=== PATIENT | male | born 1995 | race Caucasian/White ===

== ENCOUNTER 2023-11-05 07:39 | Emergency (ER) | payer BC, SELFPAY ==
[2023-11-05] VITALS (8 sets, daily range): BP systolic 109–143; BP diastolic 54–97; PULSE 75–101; RESP 12–18; TEMP 36.7–37.3; O2SAT 94–98; BMI 35.9
--- NOTE | 2023-11-05 08:16 | CRLHL7_ITS ---
For Patients: As a result of the Century Cures Act, medical imaging exams and procedure reports are released immediately into your electronic medical record. You may view this report before your referring provider. If you have questions, please contact your health care provider. Indication: Pain Technique: Three views of the lumbosacral spine were acquired Comparison: None Findings: Normal bone mineral density. Normal alignment. Height of vertebral bodies is normal. Caliber of the intervertebral disc space is normal. Facet joints appear normal. No spondylolysis or spondylolisthesis. Impression: Normal plain film examination of the lumbosacral spine Dictated by Fitz Ward MD @ 11/05/2023 9:39:31 AM (Electronically Signed)
[2023-11-05] MEDS: HYDROCODONE-ACETAMIN 5-325 MG 1 TAB 2 TAB PO (08:23)
--- NOTE | 2023-11-05 08:33 | ED.GENADULT ---
HPI - General Adult General Chief complaint: Back Injury/Pain Stated complaint: back pain Time Seen by Provider: 11/05/23 07:59 Source: patient Mode of arrival: ambulatory Limitations: no limitations History of Present Illness HPI narrative: 28-year-old male coming in today complaining of back pain. Patient states he has had a bad back for many years. States that approximately 5 years ago he had an MRI which showed that he had ?four bad discs?. He states that he was supposed to do physical therapy but he did not finish the physical therapy as prescribed because he could not miss any more work. He states that every 2 months he has flare ups of his back pain. He generally rests , takes NSAIDs and within a few days it passes. He states that this might be the worst flare up that he has had. He complains of pain with any position except for lying down. Pain is located in the low back bilaterally, radiates down the left leg. He states that the left leg is tingling. He states that any movement since shooting pain across the low back. He denies any loss of bowel or bladder control. He denies fevers or chills. No nausea or vomiting. I did look the patient up on the [place] pharmacy monitoring website, he has had no narcotic pain medications. He denies any saddle anesthesia. Unfortunately, he was told he could come in today, on a Monday, and have an MRI done of his back. Patient denies any daily medications. States that both of his parents have had back surgeries in the past. Related Data Previous Rx's Medication Instructions Recorded methylprednisolone 4 mg tablets in See Rx Instructions PO .COMPLEX 11/05/23 a dose pack (Medrol (Jamison)) #21 ea methylprednisolone 4 mg tablets in See Rx Instructions PO .COMPLEX 11/05/23 a dose pack (Medrol (Jamison)) #21 ea Review of Systems Status of ROS: Reports: 10 or more systems reviewed and unremarkable except as noted in History and below PFSH PFS Social History Smoking Status: Never smoker How often do you have a drink containing alcohol: monthly or less AUDIT-C Alcohol total score: 1 Non-prescribed substance use: denies use service: No Exam Narrative: Exam Narrative: Overweight, well-developed patient who appears quite uncomfortable. Alert and oriented. Answers questions appropriately. Mood and affect are appropriate. Thoughts are goal oriented and rational. No tangential or magical thinking noted. Patient speaks in full sentences without needing to catch his breath. HEENT: Normocephalic atraumatic. Pupils are equally round reactive to light. Extraocular muscles are intact. Conjunctivae are moist without any icterus noted. Moist mucous membranes. Abdomen: Soft and nontender . Extremities: Bilateral lower extremities are without edema. Normal DP and PT pulses. Skin: Well perfused without any obvious rashes. Back: Normal appearance. He has discomfort to palpation across the lower back. No point tenderness over the thoracic or lower spine. There are no rashes or ecchymosis noted. No swelling. Strength is 5/5 of the upper and lower extremities, however patient lets the lower leg drop secondary to back pain. Reflexes are 2+ and symmetric at the knees. Gait is labored. Patient required assistance to get into the room. Const: Vital Signs, click to edit/add: Vital Signs - 24 hr 11/05/23 07:41 11/05/23 07:48 11/05/23 08:00 Temperature 99.1 F 99.1 F Pulse Rate 90 Pulse Rate [Right Radial] 101 H 98 Respiratory Rate 18 12 Blood Pressure [Le ft Upper Arm] 129/79 121/81 Pulse Oximetry 98 94 Oxygen Delivery Me thod Room Air Room Air Room Air 11/05/23 08:00 11/05/23 08:31 11/05/23 09:02 Temperature Pulse Rate Pulse Rate [Right Radial] 90 82 75 Respiratory Rate 18 18 18 Blood Pressure [Le ft Upper Arm] 143/97 H 114/77 109/56 L Pulse Oximetry 94 97 97 Oxygen Delivery Me thod Room Air Room Air Room Air 11/05/23 09:30 11/05/23 09:39 Temperature 99.0 F 99.1 F Pulse Rate Pulse Rate [Right Radial] 78 75 Respiratory Rate 16 18 Blood Pressure [Le ft Upper Arm] 126/54 L 109/56 L Pulse Oximetry 95 97 Oxygen Delivery Me thod Room Air Room Air Course Course ED Course: We discussed that patient likely does need to have an MRI, however that is not something we were able to do today in the ER. We discussed that doing an x-ray might not give us a lot of information, but patient wished to proceed. Therefore lumbar x-ray was done. This was unremarkable. Patient received hydrocodone while he was here. This did take the edge off of his pain. Vital Signs Vital signs: Initial Vital Signs Temperature 99.1 F 11/05/23 07:41 Temperature Source Temporal Artery Scan 11/05/23 07:41 Pulse Rate 101 H 11/05/23 07:41 Pulse Rhythm Regular 11/05/23 07:41 Pulse Strength 3+ Normal 11/05/23 07:41 Respiratory Rate 18 11/05/23 07:41 Blood Pressure 129/79 11/05/23 07:41 Blood Pressure Mean 95 11/05/23 07:41 Blood Pressure Position Supine 11/05/23 07:41 Pulse Oximetry 98 11/05/23 07:41 Oxygen Delivery Method Room Air 11/05/23 07:41 Vital Signs Temperature 99.1 F 11/05/23 07:41 Pulse Rate 101 H 11/05/23 07:41 Respiratory Rate 18 11/05/23 07:41 Blood Pressure 129/79 11/05/23 07:41 Pulse Oximetry 98 11/05/23 07:41 Oxygen Delivery Method Room Air 11/05/23 07:41 Temperature 99.1 F 11/05/23 09:39 Pulse Rate 75 11/05/23 09:39 Respiratory Rate 18 11/05/23 09:39 Blood Pressure 109/56 L 11/05/23 09:39 Pulse Oximetry 97 11/05/23 09:39 Oxygen Delivery Method Room Air 11/05/23 09:39 Medications Administered Medications: Discontinued Medications Generic Name Dose Route Start Last Admin Trade Name Freq PRN Reason Stop Dose Admin Hydrocodone Bitart/Acetaminophen 2 tab 11/05/23 08:16 11/05/23 08:23 Hydrocodone-Acetamin 5-325 Mg 1 Tab PO 11/05/23 08:17 2 tab ONCE ONE Administration Medical Decision Making [facility] Narrative Medical decision making narrative: 28-year-old male with recurrent back pain, presenting with low back pain with radiculopathy. Patient will be sent home with hydrocodone and Medrol Dosepak. Recommend he follow up with primary care to discuss further imaging and next steps. Imaging Data X-ray lumbar spine: Attestation: I have reviewed the pertinent imaging results. Radiologist's impression: Three views of the lumbosacral spine were acquired Comparison: None Findings: Normal bone mineral density. Normal alignment. Height of vertebral bodies is normal. Caliber of the intervertebral disc space is normal. Facet joints appear normal. No spondylolysis or spondylolisthesis. Impression: Normal plain film examination of the lumbosacral spine Discharge Plan Discharge Clinical Impression: Lumbar radiculopathy Patient Disposition: Home, Self-Care Condition: Stable Additional Instructions: Take all steroid as prescribed. Take pain medications as needed. Use heat to low back as needed. Do not apply heat directly to skin. You will need to follow-up with your primary care provider to discuss next steps as this will likely occur again. Pain medications sent to [email or web address]. Prescriptions: New methylprednisolone [Medrol (Jamison)] 4 mg tablets,dose pack See Rx Instructions .ROUTE .COMPLEX Qty: 21 0RF Rx Instructions: orally per package directions methylprednisolone [Medrol (Jamison)] 4 mg tablets,dose pack See Rx Instructions .ROUTE .COMPLEX Qty: 21 0RF Rx Instructions: orally per package directions Follow Up/Referrals: Provider,Not a Local [Primary Care Provider] - Stand Alone Forms: [employer] Info Instructions
== END 2023-11-05 10:25 | disposition home or self-care (01) ==
PROVIDERS: Emergency Provider Family Medicine
DX: M54.16 Radiculopathy, lumbar region (principal)
CPT/HCPCS: 72100; 99283; 99284; A9270

== ENCOUNTER 2025-10-09 21:20 | Emergency (ER) | payer BC, SELFPAY ==
--- OUTSIDE RECORDS SUMMARY | 2025-10-09 21:22 | XMS_ITS | Clinical Summary ---
Author Organization [facility] Address [address] [place] [address] Care Team Providers Care Seed Cutter Name Role Phone No Primary/Referring, Phy Primary Care Provider Unavailable Source Comments You are receiving this document as you are listed as the primary care provider,follow-up provider, or the patient has been referred to you for consultation.This is in compliance with the Medicare andUniversity [facility] Medical Centercaid EHR Incentive Program,which states Providers who transition their patient to another setting of careor provider of care or refers their patient to another provider of care shouldprovide summary care record for each transition of care or referral. [facility] Allergies No known active allergies Medications MedicationSigDispense QuantityRefillsLast FilledStart DateEnd DateStatus ALBUterol sulfate HFA 108 (90 Base) MCG/ACT inhaler Inhale 2 Puffs every 4 hours as needed for Wheezing or Shortness of Breath. 1 Inhaler 01/24/2020Active Social History Tobacco UseTypesPacks/DayYears UsedDateSmoking Tobacco: NeverSmokeless Tobacco: CurrentChewSex and Gender InformationValueDate RecordedSex Assigned at BirthNot on fileLegal ZwuQfud2011/30/2017 8:26 PM CSTGender IdentityNot on fileSexual OrientationNot on file Last Filed Vital Signs Vital SignReadingTime TakenCommentsBlood Nfnpjtpf630/7703 11:15 PM CDT Njnxw1235 11:15 PM HXSBzgwhhnrqnk10 ??C (98.6 ??F)01/17/2021 9:25 PM CDT Respiratory Xyyk2297 11:15 PM CDTOxygen Wlukizxpfw60%01/17/2021 11:15 PM CDTInhaled Oxygen Concentration--Wmxvod734.8 kg (231 lb)10/03/2018 6:55 PM FINANCIAL SYSTEMS ANALYST Deeooa910.9 cm (6')10/03/2018 6:55 PM CSTBody Mass Index31.33112/04/2017 6:55 PM FINANCIAL SYSTEMS ANALYST Plan of Treatment Health MaintenanceDue DateLast DoneCommentsHep C Screening (Preventive Services) 1997HIV Screening (Preventive Services)2013dult Preventive Visit 2015HepB Vaccine (1)2016DTaP/Tdap/Td Vaccine (2 - Tdap)08/25/2021 08/25/2011COVID-19 Vaccine (1 - season)2025Influenza Vaccine (#1) 2025Zoster/Shingles Vaccine (1 of 2)2047MCV4 VaccineAged Out 08/25/2011No longer eligible based on patient's age to complete this topicHPV Vaccine (No Doses Required)CompletedHepA VaccineAged OutNo longer eligible based on patient's age to complete this topicHib VaccineAged OutNo longer eligible based on patient's age to complete this topicIPV (Polio) VaccineAged OutNo longer eligible based on patient's age to complete this topicMeningococcal B VaccineAged OutNo longer eligible based on patient's age to complete this topic Pneumococcal VaccineAged OutNo longer eligible based on patient's age to complete this topic Insurance Care Teams Team MemberRelationshipSpecialtyStart DateEnd Date No Primary/Referring, Claudio PCP - General11/30/17
--- OUTSIDE RECORDS SUMMARY | 2025-10-09 21:22 | XMS_ITS | Clinical Summary ---
Author Organization [facility] Address [address] [place] [id number] Care Team Providers Care Silver Solderer Name Role Phone Pcp, No Primary Care Provider Unavailabl e Allergies No known active allergies Medications MedicationSigDispense QuantityRefillsLast FilledStart DateEnd DateStatus acetaminophen (TYLENOL EXTRA STRGTH) 500 mg tablet Take 500-1,000 mg by mouth every 8 hours if needed.11/05/2023ctive hydrOXYzine HCL (ATARAX) 25 mg tablet Take 25 mg by mouth every 6 hours if needed.11/11/2023ctive oxyCODONE 10 mg tablet Indications:Acute post-operative painTake one-half to 1 Tablet (5-10 mg) by mouth every 4 hours if needed for Pain. 25 Tablet 11/14/2023 11:47 AM [facility]11/14/2023ctive gabapentin (NEURONTIN) 300 mg capsule Indications:Acute post-operative painTake 1 Capsule (300 mg) by mouth three times daily. 30 Capsule 11/14/2023 11:47 AM 11/14/2023ctive docusate (COLACE) 100 mg capsule Indications:Constipation due to opioid therapyTake 1-2 Capsules (100-200 mg) by mouth once daily. 15 Capsule 11/14/2023ctive methocarbamoL (ROBAXIN) 750 mg tablet Indications:Acute post-operative painTake 1 Tablet (750 mg) by mouth every 6 hours if needed for Muscle Spasm. 30 Tablet 11/14/2023 11:47 AM CST11/14/2023ctive Cane Indications:Lumbosacral disc herniationSingle Point Cane for home use. 1 Each 11/14/2023ctive Elevated Toilet Seat with Arms Indications:Lumbosacral disc herniationFor home use. 1 Each 4Active Active Problems ProblemNoted DateDiagnosed DateIschemic wwjoyeo3511/11/2023Lumbosacral disc fbymhdnnhi09/18/2024Lumbosacral mgllnuhuoprqh92/18/2024loody stool11/07/2023 Encounters DateTypeDepartmentCare DcvqHplxgzmbzmt72/17/2025 8:11 PM SHOE FITTER - 10/08/2025 10:45 PM CSTEmergency [address] [place] [address] Discharge Disposition: Against Medical Advice or Discontinued Care10/08/2025 Travelfrom Last 3 Months Immunizations ImmunizationAdministration DatesNext DueDTP-HIB1997DTaP01/04/1999, 07/22/1998,05/28/1998Dtap-5 Pertussis Wjmgwmsj55/15/1999,06/23/1998,05/28/1998 HIB PRP-T (ActHIB,Hiberix)01/04/1999,07/22/1998,06/23/1998,05/28/1998,1997 Hepatitis B (Peds)06/23/1998,1997,1997Hepatitis B, Unspecified 07/22/1998,1997,1997Inactivated Polio Kfhfplf9105/28/1998MMR06/13/2003 ,05/24/2003,01/04/1999,01/04/1998,1997Meningococcal Vaccine (Menactra) 08/25/2011Oral Polio Sldhspt7507/22/1998,1997Tdap110/25/2010Varicella Vaccine 03/23/1998 Family History Medical HistoryRelationNameCommentsInflammatory bowel diseaseBrotherInflammatory bowel diseaseMotherRelationNameStatusCommentsBrotherMother Social History Tobacco UseTypesPacks/DayYears UsedDateSmoking Tobacco: NeverSmokeless Tobacco: Never Tobacco Cessation:Counseling Given: Not Answered Alcohol UseStandard Drinks/WeekCommentsYes0 (1 standard drink = 0.6 oz pure alcohol)rareInterpersonal SafetyAnswerDate RecordedAre you being hit, kicked, pushed or yelled at (see row info)?No10/27/2024Interpersonal Safety Abuse 12 - 18Not on file10/27/2024Interpersonal Safety Ambulatory VulnerabilityNot on file 10/27/2024Sex and Gender InformationValueDate RecordedSex Assigned at BirthNot on fileLegal XwmPvhf1111/05/2012 6:26 AM CSTGender IdentityNot on fileSexual OrientationNot on file Last Filed Vital Signs Vital SignReadingTime TakenCommentsBlood Jwdziybr265/8510/08/2025 8:31 PM SHOE FITTER Gtbds19794/17/2025 8:31 PM MTKIzufoetccxl41.8 ??C (100 ??F)10/08/2025 8:31 PM CSTRespiratory Wliq726012/09/2024 8:31 PM CSTOxygen Fazkmkeadv30%10/08/2025 8:31 PM CSTInhaled Oxygen Concentration--Vbstfb023.2 kg (265 lb)10/08/2025 8:31 PM CNKDyzryo528.9 cm (6')10/08/2025 8:31 PM CSTBody Mass Index35.9410/08/2025 8:31 PM SHOE FITTER Plan of Treatment Health MaintenanceDue DateLast DoneCommentsDepression screening for age 12+ 2009HIV for age 15-6507/23/2012Hepatitis C screening for age 18-79 2015Tetanus /12/2010HPV series for age 9-45 (1 - 3-dose SCDM series)2024MI (ht and wt on same day) for age 18+11/16/2024 11/16/2023OVID-19 vaccine series ( - 2024- season)2025Influenza Vaccine (#1)2025Hepatitis B series for 19+Pwetvmyst39/30/1998, 06/23/1998, 1997, Additional history existsPneumococcal series for age 6-49Aged OutNo longer eligible based on patient's age to complete this topic Procedures Procedure NamePriorityDate/TimeAssociated DiagnosisCommentsEKG 12 LEADSTAT 10/08/2025 8:37 PM CSTfrom Last 3 Months Insurance Advance Directives * Full Code (Latest Code Status on File) Date ActivatedDate InactivatedComments11/12/2023 12:30 PM11/14/2023 3:07 PM QuestionAnswerCommentsCode Status Discussion:* Reviewed Preferences * Full Code Date ActivatedDate InactivatedComments11/11/2023 9:17 PM11/12/2023 12:30 PM QuestionAnswerCommentsCode Status Discussion:* Unable to Assess Preferences, Provider to review later Care Teams Team MemberRelationshipSpecialtyStart DateEnd Date Renetta Edwards PCP - Vtpyaxg98/17/25
--- OUTSIDE RECORDS SUMMARY | 2025-10-09 21:22 | XMS_ITS | Clinical Summary ---
Author Organization [facility] Address [facility] [place] [address] Care Team Providers Care Commercial Retoucher Name Role Phone Clinic, [facility] Primary Care Provider Allergies No known active allergies Medications MedicationSigDispense QuantityRefillsLast FilledStart DateEnd DateStatus acetaminophen (TYLENOL) 500 MG tablet Take 1-2 tablets (500-1,000 mg) by mouth every 8 hours as needed for mild pain 60 tablet 11/05/2023ctive gabapentin (NEURONTIN) 300 MG capsule Indications:Lumbosacral radiculopathyTake 1 capsule (300 mg) by mouth 3 times daily 90 capsule 11/11/2023ctive methocarbamol (ROBAXIN) 750 MG tablet Indications:Lumbosacral radiculopathyTake 1 tablet (750 mg) by mouth every 6 hours 60 tablet 11/11/2023ctive hydrOXYzine HCl (ATARAX) 25 MG tablet Indications:Lumbosacral radiculopathyTake 1 tablet (25 mg) by mouth every 6 hours as needed for other (adjuvant pain) 30 tablet 11/11/2023ctive oxyCODONE (ROXICODONE) 10 MG tablet Indications:Lumbosacral radiculopathyTake 0.5-1 tablets (5-10 mg) by mouth every 4 hours as needed for severe pain 12 tablet 11/11/2023ctive Active Problems ProblemNoted DateDiagnosed DateLumbosacral mlvlymiithgcm96/18/2024Lumbosacral disc fvfxpvculr96/18/2024Bloody stool4Acute temagrp0311/07/2023 Resolved Problems ProblemNoted DateDiagnosed DateResolved DateAcute bilateral low back pain with left-sided qyhvvntr67 Immunizations ImmunizationAdministration DatesNext DueDTAP (<7y)01/04/1999,07/22/1998, 05/28/1998HIB (PRP-T)01/04/1999,07/22/1998,05/28/1998HepB07/22/1998,1997, 1997MMR (MMRII)06/13/2003,01/04/1999Meningococcal ACWY (Menactra??) 08/25/2011OPV, trivalent, live07/22/1998,1997Poliovirus, inactivated (IPV) 05/28/1998TDAP Vaccine (Adacel)08/25/2011Tetramune (DtP/HIB)1997Varicella Pt Report Hx of Varicella/Chicken Pox03/23/1998 Family History Medical HistoryRelationCommentsPsoriatic ArthritisBrotherFamily History Negative FatherFamily History NegativeMaternal GrandfatherFamily History NegativeMaternal GrandmotherAnkylosing SpondylitisMotherCancerPaternal GrandfatherFamily History NegativePaternal GrandfatherHeart DiseasePaternal GrandfatherFamily History NegativePaternal GrandmotherColon CancerNo family hx ofRelationStatusComments BrotherFatherMaternal GrandfatherMaternal GrandmotherMotherPaternal Grandfather Paternal Grandmother Social History Tobacco UseTypesPacks/DayYears UsedDateSmoking Tobacco: Some DaysDip, chew, snus or snuffSmokeless Tobacco: CurrentChew Tobacco Cessation:Ready to Q uit: Not Asked; Counseling Given: Not Answered Alcohol UseStandard Drinks/WeekCommentsYes0 (1 standard drink = 0.6 oz pure alcohol)occasionallyAdolescent EducationAnswerDate RecordedGetting School Help NeededNot on file11/05/2023Sex and Gender InformationValueDate RecordedSex Assigned at BirthNot on fileLegal UrnOtky35/04/2012 3:33 AM CSTGender Identity Not on fileSexual OrientationNot on file Last Filed Vital Signs Vital SignReadingTime TakenCommentsBlood Vwmcdrom563/7103911/11/2023 4:02 PM TWENTY ONE DEALER Agnep202411/11/2023 4:02 PM EOFUjffmxwlabo69.7 ??C (98 ??F)11/11/2023 4:02 PM TWENTY ONE DEALER Respiratory Nqpx854811/11/2023 4:02 PM CSTOxygen Zunffromop68%11/11/2023 4:02 PM CSTInhaled Oxygen Concentration--Cqsidd585.5 kg (256 lb 14.4 oz)11/07/2023 8:01 PM UDMJmyxmq948.9 cm (6')09/11/2018 5:49 PM CSTBody Mass Index34.8409/11/2018 5:49 PM TWENTY ONE DEALER Plan of Treatment Health MaintenanceDue DateLast DoneCommentsADVANCE CARE BXRTAGNV1997ANNUAL REVIEW OF HM AILSJK8807/23/1997HIV OAYSLPUZL13/01/2012YEARLY PREVENTIVE VISIT , 08/25/2011HEPATITIS C GEBIRZTTP89/01/2015DTAP/TDAP/TD VACCINE (6 - Td or Tdap), 01/04/1999, 01/04/1999, Additional history existsPHQ-2 (once per calendar year)5COVID-19 VACCINE ( - season)2025INFLUENZA VACCINE (#1)2025ZOSTER VACCINE (1 of 2) 2047HEPATITIS B CBNAPWGQsocsmvrw41/30/1998, 06/23/1998, 1997, Additional history existsMENINGITIS VACCINEAged Out08/25/2011No longer eligible based on patient's age to complete this topicHPV VACCINE (No Doses Required) CompletedPNEUMOCOCCAL VACCINE: PEDIATRICS (0 to 5 YEARS) AND AT-RISK PATIENTS (6 to 49 YEARS)Aged OutNo longer eligible based on patient's age to complete this topic Insurance * Guarantor: Rodger Wells TypeRelation to PatientDate of PhoneBilling AddressPersonal/YnrwufVsnddf74/30/1964 none (Work) [address] [place] [address] * Guarantor: Rodger Wells TypeRelation to PatientDate of PhoneBilling AddressPersonal/KtwgodWqzyol90/30/1964 [address] [place] [address] * Guarantor: Rigo Wells PAccount TypeRelation to PatientDate of BirthPhone Billing AddressPersonal/LkefdcHoks1997 [address] [place] [address] * Guarantor: [id number] CEMENT INCAccount TypeRelation to PatientDate of BirthPhoneBilling AddressWorker's MnwojgnwnlxlPwxtlsha1997 [address] [place] [address] Advance Directives For more information, please contact: [phone] * Full Code (Latest Code Status on File) Date ActivatedDate InactivatedComments11/07/2023 7:17 PM11/11/2023 7:35 PMAll basic and advanced life-sustaining interventions are performed as appropriate QuestionAnswerCommentsCode status determined by:* Discussion with patient/ legal decision maker Care Teams Team MemberRelationshipSpecialtyStart Date[facility], [place] [address] [place] [address] GKX - Nxvibcy11/05/23
[2025-10-09 21:44] VITALS: BP 119/83; PULSE 105; RESP 24; TEMP 37.3; O2SAT 94; BMI 35.9
[2025-10-09] MEDS: IPRAT-ALBUT 0.5-2.5 MG/3 ML NEB 1 NEB IH ×2 (21:59→23:12)
--- NOTE | 2025-10-09 22:21 | ED_ITS ---
HPI - General Adult General Date Seen: 10/09/25 Chief complaint: Shortness of Breath/Dyspnea Stated complaint: Short of breath, difficulty breathing Time Seen by Provider: 10/09/25 21:49 History of Present Illness HPI narrative: 30-year-old gentleman who is generally healthy. He has no history of smoking. No history of any lung disease. He presents to the ER today with cough, shortness of breath, as well as fever. He notes that about 2 weeks ago he had been at work any sucked out a tank with some dry carbon in it. After that he did as coughing for a couple days but then got better. Beginning about 5-7 days he had a new illness with coughing. He has had fever intermittently up to about 102. He has been taking Tylenol for his fever (he prefers liquid Tylenol rather than pills) and his fever comes down. Cough has been fairly persistent for the past couple of days. He feels like there is fluid in his lungs but the cough is actually nonproductive. Today he notes that his cough is much worse when he tries to lay down and he is having trouble sleeping due to the cough. Because of the duration of his illness, now around week, his made him come to the hospital tonight. Related Data Home Medications ?Medication ?Instructions ?Recorded ?Confirmed acetaminophen 500 mg tablet 1,000 mg PO Q4-6H PRN 09/2210/09/25 (Tylenol Extra Strength) Previous Rx's ?Medication ?Instructions ?Recorded albuterol sulfate 90 mcg/actuation 2 inh inhalation Q4 -6H PRN #1 ea 10/09/25 breath activated powder inhaler Allergies Allergy/AdvReac Type Severity Reaction Status Date / Time No Known Drug Allergies Allergy Verified 10/09/25 21:48 [facility] Surgical History (Updated 10/09/25 @ 21:52 by Paty Oliver RN) H/O discectomy ?Z98.890 - Other specified postprocedural states (ICD-10) Social History Smoking Status: Never smoker Do you use any of these nicotine containing products: None Second hand tobacco smoke exposure: No How often do you have a drink containing alcohol: monthly or less AUDIT-C Alcohol total score: 1 Non-prescribed substance use: denies use service: No Exam Narrative: Exam Narrative: Constitutional: Appears well-developed and well-nourished. Alert. Conversant. Non toxic. HENT: Head: Atraumatic. Nose: Nose normal. Tympanic membranes normal. Mouth/Throat: Oral mucosa is clear and moist. no trismus. Pharynx normal. Tons ils symmetric. No tonsillar enlargement, erythema, or exudate. Eyes: Conjunctivae normal. EOM normal. Pupils equal, round, and reactive to light. No scleral icterus. Neck: Normal range of motion. Neck supple. No tracheal deviation present. Cardiovascular: Normal rate, regular rhythm. No gallop. No friction rub. No murmur heard. Symmetric radial artery pulses Pulmonary/Chest: Frequent hacky cough. Effort normal. No stridor. No respiratory distress. Bilateral wheezes and scattered expiratory rhonchi. No focal rales. No tenderness. Abdominal: Soft. Bowel sounds normal. No distension. No mass. No tenderness. No rebound. No guarding. Musculoskeletal: RUE: Normal range of motion. No tenderness. No deformity LUE: Normal range of motion. No tenderness. No deformity RLE: Normal range of motion. No edema. No tenderness. No deformity LLE: Normal range of motion. No edema. No tenderness. No deformity Neurological: Alert and oriented to person, place, and time. Normal strength. CN II-VII intact. No sensory deficit. GCS eye subscore is 4. GCS verbal subscore is 5. GCS motor subscore is 6. Normal coordination Skin: Skin is warm and dry. No rash noted. No pallor. Normal capillary refill. Psychiatric: Normal mood. Normal affect. Const: Vital Signs, click to edit/add: Vital Signs - 24 hr 10/09/25 21:44 Temperature 99.1 F Pulse Rate [Left P ulse Oximeter] 105 H Respiratory Rate 24 Blood Pressure [Ri ght Upper Arm] 119/83 Pulse Oximetry 94 Oxygen Delivery Me thod Room Air Course Course ED Course: Recheck-10 40. Patient noted some slight improvement after his 1st DuoNeb. On repeat exam he is able to talk with a little bit more full sentences. Lungs are still wheezy but he does have better aeration. Still frequent cough especially triggered by expiration, suspect bronchospastic cough. We will order another neb. COVID/influenza/RSV is negative. X-ray to look for community-acquired pneumonia based on the duration of his cough. Reevaluation(s) Reevaluation #1: Recheck-after 2nd nebulizer lung still scares the wheezy but definitely improved compared to arrival. Oxygen still normal. Vital Signs Vital signs: Initial Vital Signs Temperature 99.1 F 10/09/25 21:44 Temperature Source Temporal Artery Scan 10/09/25 21:44 Pulse Rate 105 H 10/09/25 21:44 Pulse Rhythm Regular 10/09/25 21:44 Respiratory Rate 24 10/09/25 21:44 Respiratory Effort Normal, Spontaneous, Short of Breath, SOB at Exertion 10/09/25 21:44 Respiratory Depth Normal 10/09/25 21:44 Blood Pressure 119/83 10/09/25 21:44 Blood Pressure Mean 95 10/09/25 21:44 Blood Pressure Position Sitting 10/09/25 21:44 Pulse Oximetry 94 10/09/25 21:44 Oxygen Delivery Method Room Air 10/09/25 21:44 Vital Signs Temperature 99.1 F 10/09/25 21:44 Pulse Rate 105 H 10/09/25 21:44 Respiratory Rate 24 10/09/25 21:44 Blood Pressure 119/83 10/09/25 21:44 Pulse Oximetry 94 10/09/25 21:44 Oxygen Delivery Method Room Air 10/09/25 21:44 Temperature 99.1 F 10/09/25 21:44 Pulse Rate 105 H 10/09/25 21:44 Respiratory Rate 24 10/09/25 21:44 Blood Pressure 119/83 10/09/25 21:44 Pulse Oximetry 94 10/09/25 21:44 Oxygen Delivery Method Room Air 10/09/25 21:44 Medications Administered Medications: Discontinued Medications Generic Name Dose Route Start Last Admin Trade Name Freq PRN Reason Stop Dose Admin Albuterol/Ipratropium 1 neb 10/09/25 21:50 10/09/25 21:59 Iprat-Albut 0.5-2.5 Mg/3 Ml Formerly [facility] 10/09/25 21:51 1 neb ONCE ONE Administration Albuterol/Ipratropium 1 neb 10/09/25 22:47 10/09/25 23:12 Iprat-Albut 0.5-2.5 Mg/3 Ml Neb 10/09/25 22:48 1 neb ONCE ONE Administration Prednisone 60 mg 10/09/25 22:47 10/09/25 23:12 Prednisone 20 Mg Tablet PO 10/09/25 22:48 60 mg ONCE ONE Administration Medical Decision Making MDM Narrative Medical decision making narrative: This patient presents for evaluation of shortness of breath with coughing, intermittent fevers at home. Patient has wheezing on his lung exam. The patient does not have any history of lung disease or asthma but does note both of his brothers have asthma. He was exposed to a lot of dust and carbon dust at work a couple of weeks ago and then developed this illness ongoing for about a week and has had temperatures elevated up to about 102 at home. We did do and workup for potential infection. PCR is negative for influenza, influenza a/B, RSV. Chest x-ray is negative for any focal pneumonia. although the patient's chest x-ray is clear, given duration of illness, consider an atypical pneumonia and will put him on a course of Azithromycin. Signs and symptoms are consistent with wheezing. A broad differential was considered including asthma, pneumonia, bronchitis, pneumothorax, viral induced wheezing, allergic phenomena, among others. At this point the patient is not having any respiratory distress requiring BiPAP or respiratory support. He is not hypoxic. He is somewhat improved after nebs here in the ER. At this point I do not think he needs labs, blood cultures, or IV antibiotics.. The patient feels and sounds improved after interventions here in ED. No indication for hospitalization at this time including no hypoxia, no marked increase in respiratory rate, and there are minimal to no retractions. Supportive outpatient management is indicated. Instymeds prescription for Azithromycin 500 day 1, 250 x 4 more days, prednisone 40 mg daily x5 days, albuterol inhaler 2 puffs q.4 hours p.r.n.. Since the [facility] inhaler only includes 21 puffs I also will send a prescription to his pharmacy for additional inhaler. Would recommend close followup with primary care physician for repeat lung exam in consideration about whether not he has asthma and may need long- term controller meds.. Return if increased wheezing, progressive shortness of breath, worsening cough, chest pain, fever greater than 102. Questions answered and patient comfortable with plan. Lab Data Labs: Lab Results 10/09/25 Range/Units 21:48 SARS-CoV-2 (PCR) Negative SARS-CoV-2 (Negative) Influenza Type A (PCR) Negative PCR FLU A (Negative) Influenza Type B (PCR) Negative PCR FLU B (Negative) RSV (PCR) Negative PCR RSV (Negative) Imaging Data Chest x-ray: Attestation: I have reviewed the pertinent imaging results. My impression: no infiltrates Radiologist's impression: IMPRESSION: 1. No acute cardiopulmonary disease is seen. Discharge Plan Discharge Clinical Impression: Reactive airway disease, Wheezing, Atypical pneumonia Patient Disposition: Home, Self-Care Condition: Stable Instructions: Asthma (DC), Pneumonia (ED) Additional Instructions: Thank you for coming to the ER today. As we discussed, if you have worsening symptoms especially worsening trouble breathing, chest pain, high fever, weakness, bloody sputum please come back to the ER right away to be rechecked. Your nasal swab is negative for coronavirus, influenza, and RSV tonight. Your chest x-ray looks clear and does not show any evidence for lobar pneumonia. However am concerned that you may have a condition called ?atypical pneumonia. ?. Please start on the antibiotic and take it once daily for 5 days. I think your lung infection is also triggering wheezing, like an asthma attack, in your lungs. To treat this use the prednisone of 40 mg daily for 5 days. Use your albuterol inhaler 2 puffs every 4 hours as needed. Even if you are getting better, Please recheck with your regular doctor within 5-7 days. If he need to make an appointment with a new regular doctor you can call the [facility] at [phone]. Prescriptions: New albuterol sulfate 90 mcg/actuation aerosol powdr breath activated 2 inh inhalation Q4-6H PRNQty: 1 0RF No Action acetaminophen [Tylenol Extra Strength] 500 mg tablet 1,000 mg PO Q4-6H PRN Follow Up/Referrals: Provider,Not a Local [Primary Care Provider, Family Practice] Stand Alone Forms: Work/School Release, [employer] Info Instructions
[2025-10-09 22:33] LABS: PCR FLU A Negative PCR FLU A (Negative); PCR FLU B Negative PCR FLU B (Negative); PCR RSV Negative PCR RSV (Negative); SARS PCR* Negative SARS-CoV-2 (Negative)
--- NOTE | 2025-10-09 22:42 | CRLHL7_ITS ---
For Patients: As a result of the Cures Act, medical imaging exams and procedure reports are released immediately into your electronic medical record. You may view this report before your referring provider. If you have questions, please contact your health care provider. INDICATION: Cough days, fever, shortness of breath TECHNIQUE: Chest radiograph 2 views COMPARISON: None FINDINGS: Mediastinum: The mediastinum is normal in appearance. The heart silhouette is normal in size and morphology. Lung: Both lungs are unremarkable in appearance with small lung volumes. No sign of pleural effusion seen. No pneumothorax is identified. Bone and Soft tissue: Unremarkable. IMPRESSION: 1. No acute cardiopulmonary disease is seen. Dictated by: Pato Riggs MD @ 10/09/2025 23:05:23 (Electronically Signed)
[2025-10-09 23:56] VITALS: BP 143/75; PULSE 103; RESP 19; TEMP 37.6; O2SAT 94
== END 2025-10-10 00:11 | disposition home or self-care (01) ==
PROVIDERS: Emergency Provider Emergency Medicine
DX: J45.909 Unspecified asthma, uncomplicated (principal); J18.9 Pneumonia, unspecified organism
CPT/HCPCS: 71046; 87631; 94640; 99283; 99284; J7512